=== PATIENT | male | born 1965 | race Two or more races ===

== ENCOUNTER 2023-10-07 20:53 | Inpatient (IN) | payer OTHER ==
[~2023-10-07] VITALS: Ht 182.9 cm; Wt 117.9 kg
--- NOTE | 2023-10-07 21:38 | NUR ---
PACIENTE TRAIDO EN AMBULANCIA POR DIFICULTAD RESPIRATORIOS DESDE OLEGARIO. SE REALIZA EKG Y SE PRESENTA A DR. ALDRIDGE
[2023-10-07] MEDS ORDERED: DILTIAZEM HCL 25 MG/5 ML VIAL IV ONE (21:45)
[2023-10-07] MEDS ORDERED: 0.9 % SODIUM CHLORIDE 1,000 ML IV SCH (21:45)
[2023-10-07 21:58] LABS: ABG PH 7.488 (7.35-7.45); ABG PO2 63.1 mmHg (80-100); ABG pCO2 27.2 mmHg (35-45); BASE EXCESS -1.6 mmol/l; BICARBONATE 20.1 mmol/l (23-25); SaO2 93.6 %; allen test SATISFACTORY; o2 21 %; puncture site RADIAL RIGHT
[2023-10-07] MEDS ORDERED: AMIODARONE HCL 50 MG/ML AMPUL IV ONE (22:00)
[2023-10-07 22:04] LABS: HEMATOCRIT 34.7 % (39.0-48.0); MEAN CELL VOLUME 87.8 fL (80.0-100.00); MEAN CORPUSCULAR HEMOGLOBIN 30.3 pg (27.00-32.0); MEAN CORPUSCULAR HGB CONC 34.5 g/dl (32.0-36.0); PLATELET COUNT 194 K/uL (150-450); RED BLOOD COUNT 3.96 M/uL (4.00-6.00); RED CELL DISTRIBUTION WIDTH 13.1 % (11.5-14.5)
--- NOTE | 2023-10-07 22:04 | NUR ---
SE CONECTA APACIENTE A MONITOR CARDIACO Y OXIMETRIA DE PULSO EN CAMA SARAH # 2. SE CANALIZA DE INMEDIATO POR X2 # 20 EN BRAZO Y MANO IZQUIERDA. SE LESLIE MUESTRAS DE LABORATORIO Y SE ENVIAN. SE ADMINITRAN MEDICAMENTOS DAREK ORDEN MEDICA. PENDIENTE A U/A. PENDIENTE A PLACA.
[2023-10-07 22:24] LABS: INR 1.36; PARTIAL THROMBOPLASTIN TIME 32.2 SECONDS (22.0-34.0)
[2023-10-07 22:26] LABS: ALBUMIN 2.8 gm/dL (3.4-5.0); BILIRUBIN TOTAL 0.96 mg/dL (0.3-1.2); CALCIUM 8.3 mg/dL (8.5-10.1); CREATININE SERUM 2.23 mg/dL (0.70-1.30); GFR 30.31; GLOBULINA 3.9 G/DL (2.4-3.5); POTASSIUM 3.65 mEq/L (3.5-5.1); TOTAL PROTEIN 6.7 gm/dL (6.4-8.2)
[2023-10-07] MEDS ORDERED: PIPERACILLIN/TAZOBACTAM SODIUM 3.375 GM VIAL IV ONE (22:45)
--- NOTE | 2023-10-07 23:13 | NUR ---
SE LESLIE CULTIVOS DE YANG Y MUESTRAS. SE ADMINITRAN MEDICAMENTOS DAREK ORDEN MEDICA.SE INSERTA KEVIN # 16 SE OBSERVA 50 ML DE EGRESO. SE JEANNETTE U/C Y U/C
[2023-10-07] MEDS ORDERED: ACETAMINOPHEN 500 MG GEL..CAP PO ONE (23:15)
[2023-10-07 23:18] LABS: PH,URINE 5.5 (5.0-8.0); URINE APPEARANCE Cloudy; URINE BILIRRUBIN Negative (NEGATIVE); URINE BLOOD Moderate; URINE COLOR Dark Yellow; URINE GLUCOSE Negative (NEGATIVE); URINE LEUKOCYTE Large; URINE NITRATE Negative; URINE PROTEIN 30 (NEGATIVE); URINE UROBILINOGEN 0.2 E.U./dl
[2023-10-07 23:23] LABS: URINE BACTERIA 5134.4 uL (0.0-1933); URINE EPITHELIAL CELLS 15.1 uL (0.0-38.8); URINE RBC 16.6 uL (0.0-20.8); URINE WBC 285.2 uL (0.0-23.2)
--- NOTE | 2023-10-07 23:30 | NUR ---
SE RECIBE PACIENTE ALERTA Y ORIENTADO X 3 ESFERAS EN CAMA CON BARANDAS ELEVADAS POR SEGURIDAD EN LA UNIDAD DE ICU 2. CONECTADO A MONITOR CARDIACO, OXIMETRIA DE PULSO Y ASISTIDO POR KAITLIN CANULA NASAL A 5LTS. SE OBSERVA CON RESPIRACIONES DIAFRAGMATICAS Y TAQUIPNEICO. RECIBIENDO IV'S 0.9NSS BAJANDO FULL DRIP POR [id number] EN BRAZO JANNY AREA DONAVAN DE EDEMA Y ERITEMA. H/L EN ANTEBRAZO DERECHO AREA DONAVAN DE EDEMA Y ERITEMA. SE INSERTA SONDA URINARIA BAJO MEDIDAS ESTERILES, SE OBSERVA EGRESO URINARIO COLOR AMARILLO OMARI SIN PRESENCIA DE SEDIMENTACION. SE NOTIFICA A QUE PACIENTE PRESENTA B/P:77/55MMHG, ORDENA ADMINISTRAR LEVOPHED 8MG/250ML BAJANDO A 10ML/HR. SE NOTIFICAN ABG A MAEVE. ORDENA ADMINISTRAR UN TERCER 0.9NSS BAJANDO A FULL DRIP Y LUEGO CONTINUAR CON 0.9NSS BAJANDO A 150ML/HR. SE EJECUTAN ORDENES MEDICAS. SE MANTIENE BAJO OBSERVACION POR CAMBIOS EN CONDICION MEDICA.
[2023-10-07] MEDS ORDERED: NOREPINEPHRINE BITARTRATE 8 MG in DEXTROSE 5 % IN WATER 250 ML IV SCH (23:45)
[2023-10-08] MEDS ORDERED: PIPERACILLIN/TAZOBACTAM SODIUM 2.25 GM in DEXTROSE 5 % IN WATER 50 ML IV SCH
[2023-10-08 00:02] LABS: ABG PH 7.438 (7.35-7.45); ABG PO2 78.9 mmHg (80-100); ABG pCO2 29.8 mmHg (35-45); BASE EXCESS -3.1 mmol/l; BICARBONATE 19.7 mmol/l (23-25); SaO2 95.9 %; Tco2 20.6 mmol/l
[2023-10-08 00:03] LABS: allen test SATISFACTORY; o2 40 %; puncture site RADIAL RIGHT
[2023-10-08] MEDS ORDERED: ALBUTEROL SULFATE 3 ML/2.5 MG AMPUL.NEB IH SCH (01:30)
[2023-10-08] MEDS ORDERED: LEVALBUTEROL HCL 0.63 MG/3 ML SOLUTION IH SCH (02:15)
--- NOTE | 2023-10-08 02:54 | NUR ---
REALIZA RE-EVALUACION MEDICA Y ORDENA TRATAMIENTO. SE NOTIFICAN TERAPIA RESPIRATORIA Y VENTURY MASK AL 35% A .
--- NOTE | 2023-10-08 04:30 | NUR ---
SE TRASLADA PACIENTE A AREA DE CT. PTE TOLERA ESTUDIO SIN CAMBIOS EN CONDICION MEDICA.
--- NOTE | 2023-10-08 05:11 | NUR ---
SE ORIENTA A PACIENTE SOBRE TX MEDICO, REFIERE ENTENDER. SE REALIZAN MUESTRAS DE LABORATORIO BAJO MEDIDAS ASEPTICAS Y SE ENVIAN AL LABORATORIO.
[2023-10-08 06:19] LABS: ABG PH 7.408 (7.35-7.45); ABG PO2 80.4 mmHg (80-100); ABG pCO2 30.3 mmHg (35-45); SaO2 95.7 %
[2023-10-08 06:20] LABS: BASE EXCESS -4.7 mmol/l; BICARBONATE 18.7 mmol/l (23-25); Tco2 19.6 mmol/l
[2023-10-08 06:21] LABS: allen test SATISFACTORY; o2 35 %; puncture site RADIAL RIGHT
[2023-10-08 06:34] LABS: HEMATOCRIT 35.7 % (39.0-48.0); HEMOGLOBIN 12.2 g/dL (13-16.00); MEAN CELL VOLUME 90.7 fL (80.0-100.00); MEAN CORPUSCULAR HEMOGLOBIN 30.9 pg (27.00-32.0); MEAN CORPUSCULAR HGB CONC 34.1 g/dl (32.0-36.0); PLATELET COUNT 212 K/uL (150-450); RED BLOOD COUNT 3.94 M/uL (4.00-6.00); RED CELL DISTRIBUTION WIDTH 13.2 % (11.5-14.5)
[2023-10-08 07:12] LABS: ALBUMIN 2.8 gm/dL (3.4-5.0); BILIRUBIN TOTAL 1.11 mg/dL (0.3-1.2); CALCIUM 8.7 mg/dL (8.5-10.1); CREATININE SERUM 1.99 mg/dL (0.70-1.30); GFR 34.57; GLOBULINA 4.1 G/DL (2.4-3.5); POTASSIUM 4.29 mEq/L (3.5-5.1); TOTAL PROTEIN 6.9 gm/dL (6.4-8.2)
--- NOTE | 2023-10-08 07:24 | NUR ---
SE RECIBE A PTE EN UNIDAD ICU-2 EN CAMA 2. PTE EN CAMA BAJA CON BARANDAS ELEVADAS POR SEGURIDAD. PTE ALERTA Y ORIENTADO X3 EN POSICION SEMI-CHAIDEZ. PTE CON VENTURY MASK A 35%. PTE CON VENOPUNCION EN MANO IZQUIERDA CON ANGIO 20, PATENTES. PTE CON 0.9NSS BAJANDO A 20ML/HR Y LEVOPHED 8MG/ 250ML BAJANDO A 6ML/HR. PTE CON ABDOMEN BLANDO Y DEPRESIBLE AL TACTO. PTE CON KEVIN BAJANDO A GRAVEDAD Y CON RETORNO DE ORINA AMARILLA ANA LUISA. PTE PENDIENTE A CONSULTA CON INTERNISTA.
[2023-10-08] MEDS ORDERED: ACETAMINOPHEN 500 MG GEL..CAP PO ONE (11:00)
[2023-10-08 11:39] LABS: ABG PH 7.424 (7.35-7.45); ABG PO2 121.9 mmHg (80-100); ABG pCO2 30.5 mmHg (35-45); BASE EXCESS -3.6 mmol/l; BICARBONATE 19.5 mmol/l (23-25); SaO2 98.7 %; Tco2 20.5 mmol/l; allen test SATISFACTORY; o2 35 %; puncture site RADIAL RIGHT
--- NOTE | 2023-10-08 12:44 | NUR ---
PTE ALERTA Y ORIENTADO X3. SE ADMNISTRA MEDICAMENTO DAREK ORDEN MEDICA Y BAJO MEDIDAS ASEPTICAS. NO SE OBSERVA REACCION ADVERSA AL MOMENTO.
--- NOTE | 2023-10-08 15:00 | NUR ---
SE RECIBE PTE ALERTA Y ORIENTADO X3 EN CAMA EN POSICION SEMI SENTADO. AL MOMENTO CONECTADO A MONITOR CARDIACO Y OXIMETRIA DE PULSO. SE OBSERVA PTE CANALIZADO EN BRAZO JANNY CON ANGIOS #20 BAJANDO IVF DE LEVOFET. SE MIDEN S/V Y SE MONITOREA PARA CONTINUACION DE TRATAMIENTO.
--- NOTE | 2023-10-08 16:52 | NUR ---
SE RECIBE PANIOCO DE LABORATORIE DE PTE. AL MOMENTO PTE PRESENTA B/C SONDRA BACILOS GRAM NEGATIVOS. SE RECIBE POR NSHAQ A LAS [id number]
[2023-10-08] MEDS ORDERED: 0.9 % SODIUM CHLORIDE 1,000 ML IV SCH (17:45)
[2023-10-08] MEDS ORDERED: FUROsemide 20 MG/2 ML VIAL IV SCH (18:18)
[2023-10-08] MEDS ORDERED: ENOXAPARIN SODIUM 40 MG/0.4 ML SYRINGE SUBCUTANEO SCH (18:21)
[2023-10-08] MEDS ORDERED: ONDANSETRON HCL 4 MG in 0.9 % SODIUM CHLORIDE 50 ML IV PRN (18:30)
[2023-10-08] MEDS ORDERED: ACETAMINOPHEN 500 MG GEL..CAP PO PRN (18:30)
[2023-10-08] MEDS ORDERED: NOREPINEPHRINE BITARTRATE 4 MG in DEXTROSE 5 % IN WATER 250 ML IV SCH (18:30)
[2023-10-08] MEDS ORDERED: MEROPENEM 500 MG in 0.9 % SODIUM CHLORIDE 50 ML IV SCH (21:00)
[2023-10-08] MEDS ORDERED: FAMOTIDINE/PF 20 MG in 0.9 % SODIUM CHLORIDE 8 ML IV PUSH SCH (21:00)
[2023-10-08 21:30] LABS: CKMB 1.5 NG/ML (0.5-3.6)
[2023-10-09 03:19] LABS: CKMB 1.5 NG/ML (0.5-3.6)
[2023-10-09 08:05] LABS: HEMATOCRIT 34.9 % (39.0-48.0); HEMOGLOBIN 11.9 g/dL (13-16.00); MEAN CELL VOLUME 87.8 fL (80.0-100.00); MEAN CORPUSCULAR HEMOGLOBIN 30.1 pg (27.00-32.0); MEAN CORPUSCULAR HGB CONC 34.3 g/dl (32.0-36.0); PLATELET COUNT 214 K/uL (150-450); RED BLOOD COUNT 3.97 M/uL (4.00-6.00); RED CELL DISTRIBUTION WIDTH 13.3 % (11.5-14.5)
[2023-10-09 08:11] LABS: INR 1.2; PARTIAL THROMBOPLASTIN TIME 27.3 SECONDS (22.0-34.0); PROTHROMBIN TIME 12.4 SECONDS (9.0-11.5)
[2023-10-09 08:18] LABS: ALBUMIN 2.3 gm/dL (3.4-5.0); BILIRUBIN TOTAL 0.8 mg/dL (0.3-1.2); BILIRUBIN,CONJUGATED 0.28 mg/dL (0.0-0.2); BILIRUBIN,UNCONJUGATED 0.52 mg/dL (0.0-0.6); CALCIUM 8.7 mg/dL (8.5-10.1); CREATININE SERUM 1.39 mg/dL (0.70-1.30); GFR 52.3; GLOBULINA 4.3 G/DL (2.4-3.5); POTASSIUM 4.24 mEq/L (3.5-5.1); TOTAL PROTEIN 6.6 gm/dL (6.4-8.2)
[2023-10-09 08:19] LABS: CHOL HDL RATIO 15.6 (0-5.0)
[2023-10-09 08:20] LABS: C-REACTIVE PROTEIN 20.3 MG/DL (0.00-0.29)
[2023-10-09 08:21] LABS: ERYTHROCYTE SEDIMENTATION RATE 81 mm/hr
[2023-10-09] MEDS ORDERED: ENOXAPARIN SODIUM 80 MG/0.8 ML SYRINGE SUBCUTANEO SCH (09:00)
[2023-10-09] MEDS ORDERED: ENOXAPARIN SODIUM 40 MG/0.4 ML SYRINGE SUBCUTANEO SCH (09:00)
[2023-10-09 09:10] LABS: PH,URINE 5.5 (5.0-8.0); URINE APPEARANCE Cloudy; URINE BILIRRUBIN Negative (NEGATIVE); URINE BLOOD Large; URINE COLOR Yellow; URINE GLUCOSE Negative (NEGATIVE); URINE LEUKOCYTE Large; URINE NITRATE Negative; URINE PROTEIN 30 (NEGATIVE); URINE UROBILINOGEN 0.2 E.U./dl
[2023-10-09 09:12] LABS: URINE BACTERIA 1482.9 uL (0.0-1933); URINE EPITHELIAL CELLS 5.5 uL (0.0-38.8); URINE RBC 62.5 uL (0.0-20.8); URINE WBC 2166.2 uL (0.0-23.2)
[2023-10-09 09:28] LABS: ABG PH 7.451 (7.35-7.45); ABG PO2 77.4 mmHg (80-100); BASE EXCESS -1.2 mmol/l; BICARBONATE 21.8 mmol/l (23-25); SaO2 95.9 %; Tco2 22.8 mmol/l; allen test SATISFACTORY; o2 21 %; puncture site RADIAL LEFT
[2023-10-09] MEDS ORDERED: METOPROLOL TARTRATE 5MG/5ML AMPUL IV SCH (11:15)
[2023-10-09] MEDS ORDERED: DIGOXIN 0.25 MG/ML AMPUL IV ONE (12:15)
[2023-10-09] MEDS ORDERED: AMIODARONE HCL 50 MG/ML AMPUL IV STA (15:33)
== END 2023-10-09 20:39 | disposition designated cancer center or children's hospital (05) | DRG 682 ==
LOC: ER 20:53 → ICU-2 10-08 19:11
PROVIDERS: General Practice; ADMIT Internal Medicine; ATTEND Internal Medicine
PROC: 3E0F7GC Introduction of Other Therapeutic Substance into Respiratory Tract, Via Natural or Artificial Opening (ICD-10-PCS; principal; 2023-10-08)
PROC: B246ZZZ Ultrasonography of Right and Left Heart (ICD-10-PCS; 2023-10-08)
PROC: 4A033R1 Measurement of Arterial Saturation, Peripheral, Percutaneous Approach (ICD-10-PCS; 2023-10-08)
DX: N17.9 Acute kidney failure, unspecified (principal); A41.9 Sepsis, unspecified organism; I48.91 Unspecified atrial fibrillation; D72.829 Elevated white blood cell count, unspecified; Z20.822 Contact with and (suspected) exposure to COVID-19; I95.9 Hypotension, unspecified